=== PATIENT | male | born 1995 | race African-American/Black ===

== ENCOUNTER 2021-07-01 20:22 | Observation (INO) | payer OTHER ==
[~2021-07-01] VITALS: Ht 185.4 cm; Wt 103.0 kg
[2021-07-01] MEDS ORDERED: IBUP80TA PO (20:47)
[2021-07-01] MEDS ORDERED: diphenhydrAMINE 50MG/ML VIAL (J1200) IV ONE (21:00)
[2021-07-01] MEDS ORDERED: FAMOTIDINE INJ 20MG/2ML VIAL (S0028 PER 1) IVP ONE (21:00)
[2021-07-01] MEDS ORDERED: methylPREDNISolone 125MG 2ML VIAL IV ONE (21:00)
[2021-07-01 21:45] LABS: BASO % 0.5 % (0.0-1.0); EOS # 0.3 10^3/uL (0.0-0.5); EOS % 4.7 % (0.0-3.0); HEMATOCRIT 43.8 % (42.0-52.0); HEMOGLOBIN 14.3 g/dl (13.5-17.5); LYMPH # 1.9 10^3/uL (1.5-5.0); LYMPH % 32.9 % (24.0-44.0); MEAN CORPUSCULAR HEMOGLOBIN 27.4 pg (27.0-33.0); MEAN CORPUSCULAR HGB CONC 32.6 g/dl (32.0-36.5); MEAN CORPUSCULAR VOLUME 84.1 fl (80.0-96.0); MONO # 0.5 10^3/uL (0.0-0.8); MONO % 8.9 % (2.0-8.0); NEUTROPHILS % 52.5 % (36.0-66.0); PLATELET COUNT, AUTOMATED 248 10^3/uL (150-450); RED BLOOD COUNT 5.21 10^6/uL (4.30-6.10); WHITE BLOOD COUNT 5.7 10^3/uL (4.0-10.0)
[2021-07-01 22:00] LABS: ALBUMIN 3.6 GM/DL (3.2-5.2); ALT/SGPT 73 U/L (12-78); BILIRUBIN,DIRECT < 0.1 MG/DL (0.0-0.2); BILIRUBIN,TOTAL 0.2 MG/DL (0.2-1.0); BLOOD UREA NITROGEN 10 MG/DL (7-18); C REACTIVE PROTEIN QUANTITATIV 0.34 MG/DL (0.00-0.30); CALCIUM LEVEL 8.8 MG/DL (8.5-10.1); CARBON DIOXIDE LEVEL 30 MEQ/L (21-32); CHLORIDE LEVEL 111 MEQ/L (98-107); COMPLEMENT C4 30 MG/DL (10-40); CREATININE FOR GFR 1.06 MG/DL (0.70-1.30); GLOMERULAR FILTRATION RATE > 60.0 (>60); GLUCOSE, FASTING 93 MG/DL (70-100); POTASSIUM SERUM 3.8 MEQ/L (3.5-5.1); SODIUM LEVEL 142 MEQ/L (136-145)
[2021-07-01 22:05] LABS: ERYTHROCYTE SEDIMENTATION RATE 4 mm/hr (0-15)
[2021-07-01] MEDS ORDERED: GI COCKTAIL 50ML BTL(HYOSCYAMINE/MAALOX/LIDOCAINE VISCOUS)(1:3:1) PO ONE (22:05)
[2021-07-02 00:38] LABS: RSV AMPLIFICATION NEGATIVE (NEGATIVE)
[2021-07-02] MEDS ORDERED: IBUP1TAB7 PO (02:09)
[2021-07-02] MEDS ORDERED: HOME MED LIST COMPLETE! XX SCH (02:10)
[2021-07-02 03:25] VITALS: BP 139/84
[2021-07-02 04:00] VITALS: BP_SYST 133; BP_SYST 138; BP_DIAS 65; BP_DIAS 67
[2021-07-02] MEDS ORDERED: methylPREDNISolone 40MG 1ML VIAL IV SCH (04:00)
[2021-07-02 08:00] VITALS: BP 141/77
[2021-07-02] MEDS ORDERED: FAMOTIDINE INJ 20MG/2ML VIAL (S0028 PER 1) IVP SCH (09:00)
[2021-07-02] MEDS ORDERED: diphenhydrAMINE 50MG/ML VIAL (J1200) IV SCH (09:00)
[2021-07-02] MEDS ORDERED: predniSONE 20 MG TAB PO SCH (09:00)
[2021-07-02] MEDS ORDERED: CETIRIZINE (ZyrTEC) 10 MG TAB PO SCH (09:00)
[2021-07-02] MEDS ORDERED: PILL CUTTER 1 EACH XX PRN (10:00)
[2021-07-02 12:00] VITALS: BP 149/79
[2021-07-02] MEDS ORDERED: PRED10TA2 PO (12:31)
[2021-07-02] MEDS ORDERED: CETI-24 PO (12:31)
[2021-07-02] MEDS ORDERED: ACET1TAB37 PO (12:31)
== END 2021-07-02 14:58 | disposition home or self-care (01) ==
LOC: M ED 20:22 → M ED INP 20:23 → M ICU 07-02 03:18 → M ED 07-02 03:21
PROVIDERS: ADMIT Internal Medicine; ATTEND Internal Medicine
DX: T78.3XXA Angioneurotic edema, initial encounter (principal); R22.0 Localized swelling, mass and lump, head; Z79.899 Other long term (current) drug therapy; Z79.1 Long term (current) use of non-steroidal anti-inflammatories (NSAID); Z79.52 Long term (current) use of systemic steroids; Z88.2 Allergy status to sulfonamides; F17.290 Nicotine dependence, other tobacco product, uncomplicated
CPT/HCPCS: 80048; 80076; 83519; 85025; 85280; 85652; 86140; 86160; 86161; 86850; 86900; 86901; 87631; 93041; 94760; 96374; 96375; 96376; 99285; J1200; J2920; J2930; J7512

== ENCOUNTER → 2021-09-24 | Outpatient (REF) ==
[~2021-09-24] MED LIST: ACET1TAB37 PO; CETI-24 PO; IBUP1TAB7 PO; IBUP80TA PO; PRED10TA2 PO
== END ==
LOC: M PLAIMG 09:45
PROVIDERS: ATTEND Internal Medicine
DX: Z00.00 Encounter for general adult medical examination without abnormal findings (principal)